=== PATIENT | male | born 1980 | race Caucasian/White ===

== ENCOUNTER 2016-08-20 20:14 | Emergency (ER) | payer MEDICAID ==
[~2016-08-20] VITALS: Ht 200.7 cm; Wt 92.5 kg
[2016-08-20 20:31] VITALS: Ht 200.7 cm; Wt 92.5 kg
[2016-08-20] MEDS ORDERED: IBUP-1542 PO (22:42)
--- NOTE | 2016-08-20 22:48 | ERD ---
ER Documentation Chief Complaint Date/Time DATE: 08/20/16 TIME: 22:45 Chief Complaint LT SIDED CP TODAY; DENIES INJURY. DENIES N/V. HPI 35-year-old male is complaining of left-sided chest pains since earlier today. Pain is sharp, worse with movement or deep breathing. Patient also states the pain radiates to his left shoulder. Patient works as a truck car and bus cleaner. Denies injury. Denies shortness of breath. Denies abdominal pain, nausea, or vomiting. Denies diaphoresis. ROS All systems reviewed and are negative except as per history of present illness. Medications Home Meds Active Scripts Ibuprofen* (Motrin*) 600 Mg Tab, 600 MG PO Q6H Y for PAIN AND OR ELEVATED TEMP, #30 TAB Prov:PRASANTH PINEDA. 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 Neck: Supple, nontender. No lymphanopathy. No nuchal rigidity. Respiration: Normal respiratory effort. Lungs clear to auscultate bilaterally. No wheezes, rales or rhonchi. Cardiovascular: Regular rate and rhythm. No murmurs or extra heart sounds. Left anterior chest wall tenderness on palpation. Abdomen: Abdomen normal to inspection. Nontender. No masses or organomegaly. Bowel sounds normal. Back: Normal to inspection. No midline spine tenderness. No CVA tenderness. Extremities: Extremities normal to inspection, nontender. ROM normal. Neuro: Mental status normal, speech normal. Skin: Normal turgor. No rash or lesions. Psych: Normal mood and affect. Procedures/MDM EKG: Normal sinus rhythm, normal axis. No ST segment elevation or depression. No ectopic beats. No QT prolongation. No other EKG abnormalities. EKG read by Dr. Christy. Low suspicion for acute coronary syndrome, aortic dissection, pneumonia, pneumothorax, or PE. Patient has reproducible chest wall tenderness to palpation. Likely patient chest pain was from costochondritis. Patient appears well, stable for discharge and outpatient management. Medical decision making shared with patient and family. Education provided to patient and family. Patient and family expressed understanding of the plan. Medications on discharge: Ibuprofen. Follow-up: Primary care provider in 2-3 days or return to ED if worse. Departure Diagnosis: Primary Impression: Costochondritis Condition: Stable Patient Instructions: Costochondritis [facility] Usted se granados hecho un examen mdico de control que le indica que no est en klarissa condicin que requiera tratamiento urgente en el Departamento de Emergencia. Un estudio ms profundo y el tratamiento de alvarez condicin pueden esperar sin ningn riesgo hasta que usted sea atendida/o en el consultorio de alvarez mdico o klarissa cl fredrick. Es responsabilidad suya arreglar klarissa joselin para el seguimiento del anjum. MANEJO DE CONDICIONES NO URGENTES EN EL FUTURO 1) Si usted tiene un mdico de atencin primaria: Usted debera llamar a alvarez mdico de atencin primaria antes de venir al departamento de emergencia. Despus de las horas de consultorio, alvarez doctor o alvarez asociado/a est disponible por telfono. El mdico o enfermero de barbara en el servicio telefnico puede asesorarle por ruby medio para atender el problema, o anjum contrario se puede programar klarissa joselin. 2) Si usted no tiene un mdico de atencin primaria: Llame al mdico o clnica de referencia que aparece abajo akilah las horas de consultorio para hacer klarissa joselin para que le vean. CLINICAS: [facility] [phone] [address] [facility] [phone] [address] [facility] [phone] [address] [facility] [phone] [address] [facility] 228 [phone] [facility]. [phone] [address] Additional Instructions: Llame al doctor MAANA y julianne klarissa JOSELIN PARA DENTRO DE 2-3 LAM.Dgale a la secretaria que nosotros le instruimos hacer esta joselin.Avise o llame si alvarez condicin se empeora antes de la joselin. Regresa aqui si peor o no mejor. PRASANTH PINEDA. ROB Aug 20, 2016 22:47
== END 2016-08-20 22:49 | disposition home or self-care (01) ==
LOC: FTE 20:14
DX: M94.0 Chondrocostal junction syndrome [Tietze] (principal); Z87.891 Personal history of nicotine dependence
CPT/HCPCS: 93005; Z7502

== ENCOUNTER 2017-12-12 21:54 | Emergency (ER) | END 2017-12-13 00:13 | disposition home or self-care (01) ==

== ENCOUNTER 2019-02-26 20:04 | Emergency (ER) | payer MEDICAID ==
[~2019-02-26] VITALS: Ht 160 cm; Wt 90.8 kg
[~2019-02-26 20:04] MED LIST: ACET500C5 PO; DEC4 PO; DOCU-144 PO; HC30CR25 TOP; HYDR-3980 PO; NAPR-688 PO
[2019-02-26 20:06] VITALS: BP 118/71; PULSE 67; RESP 18; Ht 160 cm; Wt 90.8 kg
--- NOTE | 2019-02-26 21:07 | ERD ---
ER Documentation Chief Complaint Chief Complaint abscess on buttocks HPI This is a 38-year-old male presents emergency department with complaints of rectal bleeding, pain for about a day. Denies headache, head injury, loss of consciousness, dizziness, neck pain, neck stiffness, throat pain, difficulty swallowing, difficulty breathing lying flat, shoulder pain, chest pain, back pain, abdominal pain, nausea, vomiting, constipation, diarrhea, urinary symptoms, loss of bowel and bladder control, trauma, injury, falls, difficulty walking due to pain, numbness or tingling sensation, calf pain, recent travel, recent major surgery in the last 3 weeks, calf pain, recent long travel, recent exposure to any illness, recent antibiotic use in the last 3 months, fever, chills, seizures. Past medical history: Denies. Surgical history: Denies. Social: Denies smoking, use of alcoholic beverages, use of illegal drugs. ROS All systems reviewed and are negative except as per history of present illness. Medications Home Meds Active Scripts Docusate Sodium* (Colace*) 100 Mg Capsule, 100 MG PO BID PRN for constipation, #30 CAP Prov:ELTONAMBARMELE Muñoz 02/26/19 Acetaminophen* (Tylophen*) 500 Mg Capsule, 1 CAP PO Q6H PRN for PAIN AND OR ELEVATED TEMP, #20 CAP Prov:ELTONAMBARMELE Muñoz 02/26/19 Hydrocodone/Acetaminophen ([place] 10-325 Tablet) 1 Each Tablet, 1 TAB PO Q6H PRN for severe pain, #12 TAB Prov:PETARHAILEYAMBARMELE Wanda 02/26/19 Hydrocortisone* Topical (Hydrocortisone* Topical) 2.5%-28.3 Gm Cream..g., 1 APPLIC TOP BID for 7 Days, #1 TUB Prov:PETARILASONAAMBARMELE Muñoz 02/26/19 Dexamethasone* (Decadron*) 4 Mg Tab, 4 MG PO BID for 2 Days, TAB Prov:WELLINGTON GARCIA DO 12/12/17 Naproxen* (Naproxen*) 500 Mg Tablet, 500 MG PO BID, #30 TAB Prov:WELLINGTON GARCIA DO 12/12/17 Allergies Allergies: Coded Allergies: No Known Allergy (Unverified , 12/12/17) PMhx/Soc Hx Alcohol Use: Yes ("QUIT 3 YRS AGO") Hx Substance Use: No Hx Tobacco Use: No Physical Exam Vitals Physical Exam Const: No acute distress Head: Atraumatic Eyes: Normal Conjunctiva ENT: Normal External Ears, Nose and Mouth. Neck: Full range of motion. No meningismus. Resp: Clear to auscultation bilaterally Cardio: Regular rate and rhythm, no murmurs Abd: Soft, non tender, non distended. Normal bowel sounds. Rectal area: Right side of the external area has a circular swelling measuring approximately 1 cm in diameter. No perirectal tenderness/abscess. Skin: No petechiae or rashes Back: No midline or flank tenderness Ext: No cyanosis, or edema Neur: Awake and alert Psych: Normal Mood and Affect Results 24 hrs Current Medications Medications Dose Sig/Kaitlyn Start Time Status Last (Trade) Ordered Route PRN Stop Time Admin Dose Reason Admin 1 tab ONCE ONCE 02/26/19 DC 02/26/19 Acetaminophen PO 21:30 21:27 / 02/26/19 21:31 Hydrocodone Bitart ([place] ()) Procedures/MDM Diagnostic tests: Procedure: Excision of thrombosed hemorrhoids. Done with my supervising physician, Dr. Elvia Smith. Betadine prep. Lidocaine 1% 1 cc subcu. Excised the thrombosed hemorrhoid. Dressing was applied by EMT. Treatment: [place] p.o. Re-evaluation: No active bleeding. No abdominal tenderness. Ambulatory with steady gait and without pain to abdomen and rectal area. Stated that he feels much better at this time and that he is ready to go home. Patient and family members stated that they are comfortable to go home. Differential diagnosis I have low suspicion for sepsis, perirectal abscess, deep space infection, acute abdomen. Final diagnosis: External thrombosed hemorrhoids. Prescription: [place]. Colace. Hydrocortisone ointment. Follow-up with PCP in the next 24-48 hours. Follow-up with GI specialist in the next 24-48 hours. Come back here in the emergency department for any new symptoms or any worsening symptoms. All questions and concerns were answered. Patient and family members verbalized understanding and agreed with plan of care. Hemodynamically stable on discharge. Departure Diagnosis: Primary Impression: Thrombosed hemorrhoids Additional Impression: External thrombosed hemorrhoids Condition: Stable Additional Instructions: Follow-up with PCP in the next 24-48 hours. Follow-up with GI specialist in the next 24-48 hours. Come back here in the emergency department for any new symptoms or any worsening symptoms. ROLAN CONDE Feb 26, 2019 21:00
[2019-02-26] MEDS ORDERED: HYDROCODONE/APAP (10/325) TAB PO ONE (21:30)
== END 2019-02-26 21:30 | disposition home or self-care (01) ==
LOC: FTE 20:04
DX: K64.5 Perianal venous thrombosis (principal)
CPT/HCPCS: 46083; Z7502; Z7610